=== PATIENT | male | born 1985 | race Caucasian/White ===

== ENCOUNTER 2016-12-28 16:39 | Emergency (ER) | payer OTHER ==
[~2016-12-28] VITALS: Ht 177.8 cm; Wt 111.5 kg
[2016-12-28 17:10] VITALS: BP 136/79
== END 2016-12-28 22:15 | disposition left against medical advice (07) ==
LOC: ER 21:02
DX: R10.9 Unspecified abdominal pain (principal); F31.9 Bipolar disorder, unspecified